=== PATIENT | male | born 1950 | race Caucasian/White ===

== ENCOUNTER → 2017-04-14 09:48 | Outpatient (CLI) | payer MEDICARE, OTHER, SELFPAY ==
[2017-04-14 11:35] LABS: PSA,Total- Diagnostic < 0.01 ng/mL (0.0-4.0)
== END ==
PROVIDERS: Family Provider Family Medicine; PCP Family Medicine; Visit Provider Urology
DX: C61 Malignant neoplasm of prostate (principal)
CPT/HCPCS: 36415; 84153

== ENCOUNTER → 2017-07-12 10:04 | Outpatient (CLI) | payer MEDICARE, OTHER, SELFPAY ==
[2017-07-12 11:21] LABS: PSA,Total- Diagnostic < 0.01 ng/mL (0.0-4.0)
== END ==
PROVIDERS: Family Provider Family Medicine; PCP Family Medicine; Visit Provider Urology
DX: C61 Malignant neoplasm of prostate (principal)
CPT/HCPCS: 36415; 84153

== ENCOUNTER → 2017-08-08 09:21 | Outpatient (CLI) | payer MEDICARE, OTHER, SELFPAY ==
[2017-08-08 10:21] LABS: Hemoglobin A1c 6.2 % (4.2-6.3)
[2017-08-08 10:30] LABS: AST(SGOT) 14 U/L (15-37); Alanine Aminotransfer ALT/SGPT 18 U/L (16-61); Albumin, Serum 3.5 g/dL (3.2-5.0); Alkaline Phosphatase 76 U/L (45-117); Anion Gap 6 (5-15); BUN 16 mg/dL (7-18); BUN/Creat Ratio 14.5 RATIO (10-20); Calcium,Total 8.5 mg/dL (8.5-10.1); Chloride 111 mmol/L (98-107); Cholesterol 156 mg/dL (200); EST Glomerular Filtration Rate 70 mL/min (>60); Est Glom Filt Rate - Afr Amer 85 mL/min (>60); Globulin 3.5 g/dL (2.2-4.2); Glucose 94 mg/dL (74-106); High Density Lipoprotein 42 mg/dL; Potassium 4.3 mmol/L (3.5-5.1); Sodium Level 142 mmol/L (136-145); Triglycerides 86 mg/dL; Very Low Density Lipoprotein 17 mg/dL (5-40)
== END ==
PROVIDERS: Family Provider Family Medicine; PCP Family Medicine; Visit Provider Family Medicine
DX: E78.5 Hyperlipidemia, unspecified (principal); R73.03 Prediabetes
CPT/HCPCS: 36415; 80053; 80061; 83036

== ENCOUNTER → 2018-01-12 10:02 | Outpatient (CLI) | payer MEDICARE, OTHER, SELFPAY ==
[2017-02-16 13:24] VITALS: BMI 31.9
[2018-01-12 13:22] LABS: PSA,Total- Diagnostic < 0.01 ng/mL (0.0-4.0)
--- OUTSIDE RECORDS SUMMARY | 2018-03-09 12:02 | XMS RPT_ITS ---
:1950 Author Organization OHIP Care Team Providers Name Role Phone Estephanie Lockhart Admitting Unavailable Estephanie Lockhart Attending Unavailable Estephanie Lockhart Primary Care Unavailable Estephanie Lockhart Attending Unavailable Estephanie Lockhart Primary Care Unavailable Estephanie Lockhart Admitting Unavailable Estephanie Lockhart Attending Unavailable Estephanie Lockhart Primary Care Unavailable Jem Mccall Admitting Unavailable Jem Mccall Attending Unavailable Estephanie Lockhart Primary Care Unavailable Jem Mccall Attending Unavailable Jem Mccall Referring Unavailable Estephanie Lockhart Primary Care Unavailable Jem Mccall Attending Unavailable Jem Mccall Referring Unavailable Estephanie Lockhart Primary Care Unavailable Jem Mccall Attending Unavailable Jem Mccall Referring Unavailable Estephanie Lockhart Primary Care Unavailable Estephanie Lockhart Attending Unavailable Estephanie Lockhart Referring Unavailable Estephanie Lockhart Primary Care Unavailable Jem Mccall Attending Unavailable Jem Mccall Referring Unavailable Estephanie Lockhart Primary Care Unavailable PROBLEMS PROBLEMS DATE TYPE CONDITION / CODE ATTENDING STATUS SOURCE 07/12/2017 Unknown C61 - Malignant StefanyJem merritt Active [place] [facility] prostate / Hospital C61(ICD-10) Repository 03/03/2017 Unknown Z01.818 - Encounter Jem Mccall Active [facility] for other [facility] preprocedural Hospital examination / Repository Z01.818(ICD-10) 02/19/2017 Unknown 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 Values obtained with different assay methods cannot be used interchangably. When changing PSA assays in the course of monitoring a patient, additional sequential testing should be carried out to confirm baseline values. Performed By: #### L501.9940 #### [facility] [address] [place], [place], [address] HEMOGLOBIN A1C Collected: 08/08/2017 Status: F Source: GAIL 9:26 AM [facility] REPOSITORY TYPE CODE TESTS RESULT OUT OF RANGE REFERENCE UNITS LAB L501.9985 4.2-6.3 % Normal HGB A1C 6.2 Performed By: #### L501.9985 #### [facility] [address] [place], [address] COMPREHENSIVE METABOLIC Collected: 08/08/2017 Status: F Source: GAIL PROFIL 9:26 AM [facility] REPOSITORY TYPE CODE TESTS RESULT OUT OF RANGE REFERENCE UNITS LAB L501.0100 74-106 mg/dL Normal GLU 94 Result Comment: Please note revised GLUCOSE reference range effective 2017. LAB L501.1000 7-18 mg/dL Normal BUN 16 LAB L501.1100 0.70-1.30 mg/dL Normal CREAT,SERUM 1.10 Result Comment: The validity of the calculated GFR AND GFRAA in patients over 70 years has not been determined. Clinical correlation is essential. LAB L501.1110 >60 mL/min Normal EST GFR 70 Result Comment: Non- GFR Calc LAB L501.1115 >60 mL/min Normal EST GFR - AA 85 Result Comment: GFR Calc LAB L501.1300 10-20 RATIO Normal BUN/CRE 14.5 LAB L501.1500 6.4-8.2 g/dL T Normal PROT 7.0 LAB L501.1800 3.2-5.0 g/dL Normal ALB 3.5 LAB L501.1950 2.2-4.2 g/dL Normal GLOB 3.5 LAB L501.2000 0.9-2.4 RATIO Normal A/G 1.0 LAB L501.2200 8.5-10.1 mg/dL CA Normal 8.5 LAB L501.4100 15-37 U/L Low AST 14 LAB L501.4305 45-117 U/L Normal ALK P 76 LAB L501.4405 16-61 U/L Normal ALT 18 LAB L501.4600 0.20-1.00 mg/dL High T BILI 1.60 LAB L501.5300 136-145 mmol/L NA Normal 142 LAB L501.5600 3.5-5.1 mmol/L K Normal 4.3 LAB L501.5900 98-107 mmol/L High CL 111 LAB L501.6100 21.0-32.0 mmol/L Normal CO2 25.0 LAB L501.6200 5-15 Normal GAP 6 Performed By: #### L500.4050, L500.4100 #### [facility] [address] [place], [place], [address] LIPID PROFILE Collected: 08/08/2017 Status: F Source: GAIL 9:26 AM [facility] REPOSITORY TYPE CODE TESTS RESULT OUT OF RANGE REFERENCE UNITS LAB L501.4900 200 mg/dL Normal CHOL 156 Result Comment: <200 mg/dL Desirable 200-240 mg/dL Borderline >240 mg/dL High Risk LAB L501.5000 mg/dL Normal TRIG 86 Result Comment: The drugs N-Acetylcysteine and Metamizole may falsely depress this assay. Serum Triglycerides Reference Interval Normal <150 mg/dL Borderline high 150 - 199 mg/dL High 200 - 499 mg/dL Very High > or = 500 mg/dL LAB L501.6400 mg/dL Normal HDL 42 Result Comment: The drugs N-Acetylcysteine and Metamizole may falsely depress this assay. Reference Range HDL <40 mg/dL Low HDL Cholesterol HDL >or= 60 mg/dL High HDL Cholesterol LAB L501.6500 0-130 mg/dL Normal LDL 97 LAB L501.6600 5-40 mg/dL Normal VLDL 17 Performed By: #### L500.4050, L500.4100 #### [facility] [address] [place], [address] PSA,TOTAL- DIAGNOSTIC Collected: 07/12/2017 Status: F Source: [place] 10:23 AM [facility] REPOSITORY TYPE CODE TESTS RESULT OUT OF RANGE REFERENCE UNITS LAB L501.9940 0.0-4.0 ng/mL PSA, Normal DIAGNOSTIC < 0.01 Result Comment: This test was performed using the TPSA assay method for the [employer] chemistry system. Values obtained with different assay methods cannot be used interchangably. When changing PSA assays in the course of monitoring a patient, additional sequential testing should be carried out to confirm baseline values. Performed By: #### L501.9940 #### [facility] [address] [place], [address] PSA,TOTAL- DIAGNOSTIC Collected: 04/14/2017 Status: F Source: [place] 9:53 AM [facility] RE[facility]ORY TYPE CODE TESTS RESULT OUT OF RANGE REFERENCE UNITS LAB L501.9940 0.0-4.0 ng/mL PSA, Normal DIAGNOSTIC < 0.01 Result Comment: This test was performed using the TPSA assay method for the [employer] chemistry system. Values obtained with different assay methods cannot be used interchangably. When changing PSA assays in the course of monitoring a patient, additional sequential testing should be carried out to confirm baseline values. Performed By: #### L501.9940 #### [facility] [address] [place], [address] CYSTOGRAPHY MIN 3 VIEWS Observed: 03/03/2017 Status: F Source: [place] 8:41 AM [facility] REPOSITORY [facility] Imaging Services [address] [place] [address] Cystography min 3 Views MR#: [id number] Acct: [id number] Name: HUNTER TESFAYE Rep #: [id number] : 1950 M 67 From: Fabio Collins MD PCP: Estephanie Lockhart MD Status: REG CLI Study: Cystography min 3 Views Date of Exam: 03/03/17 Exam# [id number] Ordering Dr: Jem Mccall MD CLINICAL HISTORY: Male, 67 years old. Status post prostatectomy. PROCEDURE: Cystogram. FLUOROSCOPY TIME (if supplied): (39 seconds) minutes/seconds 200 mL of contrast installed into the bladder in a retrograde fashion through the indwelling catheter. The radiologist installed the contrast into the bladder. TECHNIQUE: (All elements of maximal sterile barrier technique followed, including US elements as applicable) 20 mL of contrast was injected through the catheter. 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 There is no evidence of extravasation. RAD/Cystography min 3 Views IMPRESSION: There is trabeculation of the urinary bladder. No evidence of extravasation. Electronically Signed: Fabio Collins MD at 10:07 EST Tel [phone], Service support , CC: Estephanie Lockhart MD; Jem Mccall MD Topographical Field Assistant: Signed DISCHARGE SUMMARY Observed: 02/23/2017 Status: F Source: [place] 11:57 AM [facility] REPOSITORY [facility] Medical Records Department [address] [place] [address] Discharge Summary 02/23/17 1155 MR#: [id number] Acct: [id number] Name: HUNTER TESFAYE Rep #: [id number] : 1950 67 From: Jem Mccall MD PCP: Estephanie Lockhart MD Status: DIS IN Y Location[place] [facility] [id number] Discharge Date and Diagnosis Date of Admission: 02/16/17 Date of Discharge: 02/19/17 - Primary Discharge Diagnosis Prostate cancer Hospital Course and Treatment Operations: - - Radical prostatectomy Procedures: None Summary of Care Provided: The patient is a 67 year old male with a history of prostate cancer he underwent a laparoscopic robotic assisted radical prostatectomy. Postoperative course was remarkable for urine leak he did have a drain the first 24 hours had very minimal drainage from the drain but then it opened up and he had a significant amount of drainage from the GLYNN drain this is sent for creatinine which came back high confirming that a small urine leak I reassured the patient is this should heal itself without any intervention or problems with a healthy go home with the drain so he was discharged home in good condition on postoperative day #3 the GLYNN drain in place and was instructions on how to drain it and he will call the office once the drainage slows down to the GLYNN drain removed hopefully within the next week and then will remove the catheter in about 2 weeks. Patient went home on a regular diet tolerating regular food ambulating and pain was under control abdomen was soft and benign he is passing gas and also had bowel movements. Discharge Diet: Light diet - advance as tolerated Discharge Activity: May Not Drive Return to work on:: 03/31/17 May shower in (days): 1 Call your doctor if your incision/area has: Continuous Slow Oozing, Sudden Increased Bleeding, Increased Pain/ Swelling, Increased Redness, Foul Smelling Discharge, Swelling at the incision site Call your doctor if you observe: Fever of 101 or Higher, Inability to urinate, Inability to have a bowel movement, Shortness of breath, Chest pain, Uncontrolled pain Suture Line Care: Avoid Pulling/Pushing, Avoid Pinching/Bending Catheter: Vera to leg bag, Vera to large bag Drain: [place] Home Medications: Medications to take at Discharge Aspirin E.C. [Ecotrin] 81 mg PO DAILY@0800 02/01/17 Fluticasone 0.05% [Flonase Nasal [place]] 1 spray NASAL DAILY PRN 02/01/17 Ciprofloxacin [Cipro] 500 mg PO DAILY #20 tab 02/17/17 Docusate Sodium [Colace] 100 mg PO BID #20 cap 02/17/17 Hydrocodone/Acetaminophen [[place]ov[place] 5-325 Tablet] 1 ea PO Q4H PRN PRN #14 tab 02/17/17 Following Prescrptions Were Given to Patient: Hydrocodone/Acetaminophen [[place] 5-325 Tablet] 1 ea PO Q4H PRN PRN #14 tab PRN Reason: Pain Ciprofloxacin [Cipro] 500 mg PO DAILY #20 tab Docusate Sodium [Colace] 100 mg PO BID #20 cap Other Amb Orders: Cystography min 3 Views [RAD] Time Frame: 2 Weeks, Facility: [facility], Location: RAD Future Appts Primary Care Physician: Estephanie Lockhart MD [Primary Care Provider] - Please Follow Up With: Jem Mccall MD When: Appt Mar 03 at 11am, Do cystogram at 10am in radiology. Meaningful Use Info Meaningful Use Diagnoses (Choose all that apply): None applicable 02/23/17 1157 <Electronically signed by Jem Mccall MD> Date Jem Mccall MD Cosigner Signature (if applicable): Date CC: Estephanie Lockhart MD; Jem Mccall MD Signed CREATININE, URINE Collected: 02/18/2017 Status: F Source: [place] (RANDOM) 11:45 AM [facility] REPOSITORY Order Comment: Comments: Fluid from GLYNN drain TYPE CODE TESTS RESULT OUT OF RANGE REFERENCE UNITS LAB L501.1200 NO RANGE EST. mg/dL Normal UR CREAT 40.70 Performed By: #### L501.1200 #### [facility] [address] [place], [address] DISCHARGE INSTRUCTION Observed: 02/17/2017 Status: F Source: [place] 7:46 AM [facility] REPOSITORY [facility] Medical Records Department [address] [place] [address] Instructions for Home/Discharge Instructions 02/17/17 0739 MR#: [id number] Acct: [id number] Name: HUNTER TESFAYE Rep #: [id number] : 1950 67 From: Jem Mccall MD PCP: Estephanie Lockhart MD Status: ADM IN Discharge Diet: Light diet - advance as tolerated Discharge Activity: May Not Drive Return to work on:: 03/31/17 May shower in (days): 1 Lifting Restrictions: no lifting > 10 lbs Call your doctor if your incision/area has: Continuous Slow Oozing, Sudden Increased Bleeding, Increased Pain/ Swelling, Increased Redness, Foul Smelling Discharge, Swelling at the incision site Call your doctor if you observe: Fever of 101 or Higher, Inability to urinate, Inability to have a bowel movement, Shortness of breath, Chest pain, Uncontrolled pain Suture Line Care: Avoid Pulling/Pushing, Avoid Pinching/Bending Catheter: Vera to leg bag, Vera to large bag Drain: [place] Allergies/Adverse Reactions: Allergies No Known Allergies Allergy (Verified 02/01/17 13:47) Medications to take at Discharge Aspirin E.C. [Ecotrin] 81 mg PO DAILY@0800 02/01/17 Fluticasone 0.05% [Flonase Nasal [place]] 1 spray NASAL DAILY PRN 02/01/17 Ciprofloxacin [Cipro] 500 mg PO DAILY #20 tab 02/17/17 Docusate Sodium [Colace] 100 mg PO BID #20 cap 02/17/17 Hydrocodone/Acetaminophen [Bovina 5-325 Tablet] 1 ea PO Q4H PRN PRN #14 tab 02/17/17 The following prescriptions were given: Hydrocodone/Acetaminophen [Bovina 5-325 Tablet] 1 ea PO Q4H PRN PRN #14 tab PRN Reason: Pain Ciprofloxacin [Cipro] 500 mg PO DAILY #20 tab Docusate Sodium [Colace] 100 mg PO BID #20 cap Orders to be completed after discharge: Cystography min 3 Views [RAD] Time Frame: 2 Weeks, Facility: [facility], Location: [facility] Future Appts Primary Care Physician: Estephanie Lockhart MD [Primary Care Provider] - Please Follow Up With: Jem Mccall MD When: Appt Mar 03 at 11am, Do cystogram at 10am in radiology. Proposed Discharge Date: 02/18/17 02/17/17 0746 <Electronically signed by Jem Mccall MD> Date Jem Mccall MD CC: Estephanie Lockhart MD CBC-COMPLETE BLOOD CNT Collected: 02/17/2017 Status: F Source: [place] NO DIFF 6:20 AM [facility] REPOS[facility]ORY TYPE CODE TESTS RESULT OUT OF RANGE REFERENCE UNITS LAB L100.1000 4.4-11.0 K/mm3 High WBC 12.5 LAB L100.1200 4.6-6.2 M/mm3 Low RBC 3.71 LAB L100.1300 13.0-16.5 g/dl Low HGB 11.1 LAB L100.1400 40-54 % Low HCT 33.2 LAB L100.1500 80-94 fL Normal MCV 89.5 LAB L100.1600 27.0-32.0 pg Normal MCH 29.9 LAB L100.1700 32-36 g/gl Normal MCHC 33.4 LAB L100.1810 11.6-14.6 % Normal RDW CV 13.3 LAB L100.1820 35.1-43.9 fl Normal RDW SD 43.4 LAB L100.1900 150-450 K/mm3 Normal PLT 178 LAB L100.2000 6.2-12.0 fl Normal MPV 9.1 Performed By: #### L100.0500 #### [facility] [address] [place], [address] BASIC METABOLIC Collected: 02/17/2017 Status: F Source: [place] PROFILE (BMP) 6:20 AM [facility] REPOSITORY TYPE CODE TESTS RESULT OUT OF RANGE REFERENCE UNITS LAB L501.0100 70-110 mg/dL Normal GLU 109 LAB L501.1000 7-18 mg/dL Normal BUN 13 LAB L501.1100 0.70-1.30 mg/dL Normal 1.12 CREAT,SERUM Result Comment: The validity of the calculated GFR AND GFRAA in patients over 70 years has not been determined. Clinical correlation is essential. LAB L501.1110 >60 mL/min Normal EST GFR 69 Result Comment: Non- GFR Calc LAB L501.1115 >60 mL/min Normal EST GFR - AA 84 Result Comment: GFR Calc LAB L501.1255 ml/min Normal Estimated CRCL 60.22 LAB L501.1300 10-20 RATIO Normal BUN/CRE 11.6 LAB L501.2200 8.5-10 mg/dL Low .1 CA 7.7 LAB L501.5300 136-14 mmol/L Normal 5 NA 140 LAB L501.5600 3.5-5. mmol/L Normal 1 K 4.1 LAB L501.5900 98-107 mmol/L High CL 109 LAB L501.6100 21.0-3 mmol/L Normal 2.0 CO2 25.0 LAB L501.6200 5-15 Normal GAP 6 Performed By: #### L500.2500 #### [facility] [address] [place], [place], [id number] CBC-COMPLETE BLOOD CNT Collected: 02/16/2017 Status: F Source: [place] NO DIFF 12:33 PM [facility] REPOSITORY Order Comment: Comments: To be done in PACU TYPE CODE TESTS RESULT OUT OF RANGE REFERENCE UNITS LAB L100.1000 4.4-11.0 K/mm3 High WBC 13.8 LAB L100.1200 4.6-6.2 M/mm3 Low RBC 4.50 LAB L100.1300 13.0-16.5 g/dl Normal HGB 13.5 LAB L100.1400 40-54 % Low HCT 39.3 LAB L100.1500 80-94 fL Normal MCV 87.3 LAB L100.1600 27.0-32.0 pg Normal MCH 30.0 LAB L100.1700 32-36 g/gl Normal MCHC 34.4 LAB L100.1810 11.6-14.6 % Normal RDW CV 13.0 LAB L100.1820 35.1-43.9 fl Normal RDW SD 41.9 LAB L100.1900 150-450 K/mm3 Normal PLT 167 LAB L100.2000 6.2-12.0 fl Normal MPV 9.1 Performed By: #### L100.0500 #### [facility] [address] [place], [place], [id number] BASIC METABOLIC Collected: 02/16/2017 Status: F Source: [place] PROFILE (BMP) 12:33 PM [facility] REPOSITORY Order Comment: Comments: To be done in PACU TYPE CODE TESTS RESULT OUT OF RANGE REFERENCE UNITS LAB L501.0100 70-110 mg/dL High GLU 152 Result Comment: Fasting Glucose result greater than or equal to 126 mg/dL suggests DIABETES MELLITUS per A.D.A. criteria. LAB L501.1000 7-18 mg/dL Normal BUN 12 LAB L501.1100 0.70-1.30 mg/dL Normal CREAT,SERUM 1.09 Result Comment: The validity of the calculated GFR AND GFRAA in patients over 70 years has not been determined. Clinical correlation is essential. LAB L501.1110 >60 mL/min Normal EST GFR 71 Result Comment: Non- GFR Calc LAB L501.1115 >60 mL/min Normal EST GFR - AA 86 Result Comment: GFR Calc LAB L501.1255 ml/min Normal Estimated CRCL 61.88 LAB L501.1300 10-20 RATIO Normal BUN/CRE 11.0 LAB L501.2200 8.5-10 mg/dL Low .1 CA 7.9 LAB L501.5300 136-14 mmol/L Normal 5 NA 141 LAB L501.5600 3.5-5. mmol/L Normal 1 K 3.6 LAB L501.5900 98-107 mmol/L High CL 108 LAB L501.6100 21.0-3 mmol/L Normal 2.0 CO2 23.0 LAB L501.6200 5-15 Normal GAP 10 Performed By: #### L500.2500 #### [facility] [address] [place], [address] OPERATIVE REPORT Observed: 02/16/2017 Status: F Source: [place] 12:01 PM [facility] REPOSITORY [facility] Medical Records Department [address] [place] [address] Operative Report 02/16/17 1149 MR#: [id number] Acct: [id number] Name: HUNTER TESFAYE Rep #: [id number] : 1950 67 From: Jem Mccall MD PCP: Estephanie Lockhart MD Status: ADM IN Y Location: [place] [address] Problem List (1) Prostate cancer Status: Acute (2) Benign prostatic hyperplasia (BPH) with urinary urgency Status: Acute (3) Frequent urination Status: Acute Report of Operation Date of Procedure: 02/16/17 Pre-Operative Diagnosis: Prostate cancer, BPH with obstruction urgency and frequent urination Post-Operative Diagnosis: Same Surgery/Procedure Performed:: Laparoscopic robotic assisted radical prostatectomy, suture suspension of the urethra to prevent stress incontinence. Bilateral pelvic lymph node dissection. EMG monitoring of the pelvic lymph nodes and the urethral sphincter Description of Surgical Findings:: 67-year-old male was taken back to the operating room after smooth induction of general anesthesia he was placed in dorsal lithotomy position the abdomen was shaved prepped and draped in usual sterile fashion. I made an incision above the umbilicus. Used a Veress needle advanced the Veress needle through the skin fascial layers and into the peritoneal cavity and insufflated the peritoneal cavity with CO2 gas. Once the peritoneal cavity was insufflated then I placed a trocar through the incision this with a camera trocar I used then use a camera to come into the peritoneal cavity inspected the peritoneal cavity stent with normal adhesions between the sigmoid colon and the lateral wall I then placed my right arm left arm and my fourth arm I placed my variceal port and I also placed my suction port. First went into the abdomen and dissected the sigmoid colon off the lateral wall this allowed it to be retracted and then went down into the pelvis identified the second fold of the pelvis and side was incised this fold and then immediately came upon the seminal vesicle with vas deferens dissected out the right seminal vesicle and right vas deferens all the way to the prostate and then went to the left side and dissected out the left seminal vesicle and left vas deferens below the prostate I then identified the nonbilious fascia did not inside the IV fascia was but I teased the prostate often obvious fascia posteriorly working all the way up to the apex posteriorly of the prostate. I then pulled out of the pelvis the fourth arm was released off the colon and then proceeded with creating the space of Retzius and dropping the bladder use the fourth arm to retract the bladder fold down incised the peritoneum and entered the space of Retzius on the right side that the same thing on the left side and into the space of Retzius and dissected out the space of Retzius completely and then transected through the umbilical ligament and medial umbilical ligament to dropped the bladder down the bladder was then placed on traction with the fourth arm and then I went to the prostate I cleaned the prostate off completely of all the fat above the prostate I cleaned the pelvic sidewalls I then identified the levator fascia, off the pelvic sidewall incised the levator fascia and then teased the levator muscles off the prostate on the right side all the way up to the apex and then went to the left side and identified the levator fascia and the left side and then teased the pelvic muscles off the prostate on the left side and then worked towards the apex of the prostate with the dorsal vein complex transected through the puboprostatic ligaments and then identified the dorsal vein complex. Stitch was then placed in the dorsal vein complex circumferentially using a [id number] technique once a stitch was done to secure the dorsal vein that I pulled back to the junction between the prostate and the bladder neck I first then incised the endopelvic fascia over the overlying the prostate on the right side and the left side to assist with the identified creation of the neurovascular bundles and releasing of the neurovascular bundles. The catheter was moved back and forth identify the junction between the bladder and the prostate and then once this was identified and I dissected through the junction between the bladder and prostate came down on the catheter the balloon was deflated and the catheter was pulled up on traction patient had a prior TURP so he can have a wide open bladder neck took some time to identify the proper landmarks of the bladder neck since and it was prior operative field. I then also identified the left and right ureteral orifices as well. We then went posterior and dissected the posterior aspect of the bladder from the prostate until I reached the seminal vesicles and vas deferens had already been dissected out. We then placed the EMG monitor leads into the abdomen through the care provided through the supra supraumbilical stab incision I put the first monitor in the right side in the levator muscles and the second lead in the left levator muscles we then used the bipolar to stimulate the EMG stimulation and identified the track of the neurovascular bundle and the pudendal pudendal nerve branches headed on the right side of the pelvis this was identified and marked so I knew were to do the dissection. I then went to the left side again this using the bipolar and the EMG monitor identified the action potential on the nerve bundles run in the left side of the prostate towards the apex once this was accomplished in identifying the identifying both these bundles then I transected through the pedicle of the prostate on the right side until identified the prostate capsule and then I carefully teased the neurovascular bundle posterior of the prostate all the way to the apex until I got to the sphincter. I then went to the left side and a same thing as I transected through the pedicle of the prostate the left side and then transected through the pedicle and then identified the neurovascular bundle on the left side and teased the neurovascular bundles off the prostate and the left side all the way up to the apex was then awakened came up to the apex and transected through the dorsal vein complex and then dissected circumferentially all the way around the urethra in order to allow for a nice urethral stump. I then had to place an extra stitch in the dorsal vein complex to control bleeding. Once this was accomplished and there was no more bleeding from the dorsal vein complex I then transected the urethra as close as possible to the prostate and then remove the prostate put in Endo Catch bag at this point we can we proceeded with the suspension of the urethra to help with incontinence suture suspension was done in the bladder neck and the urethra for starting at the 6 o'clock position then running all the way up on the right side to the 12 o'clock position then starting on the 6 o'clock position posterior then went all the way on the left side to the 12 o'clock position once this was accomplished and we flushed the catheter there was a small leak at the 11 o'clock position in the 1 o'clock position extra stitches were placed to slow down the leg significantly but is only a small leak after second flush test so at this point decided to leave a drain and so we did leave a drain in next to the completed anastomosis and suspension of the urethra and a catheter was put into the bladder with 10 cc in the balloon and it was [place] tip catheter the bladder was flushed clear once the anastomosis was completed then I pulled back to the pelvic lymph nodes identified the right iliac vein and right iliac artery pelvic sidewall the lymph noted [place] and also identified the obturator nerve completed the lymph node dissection on the right side and after this was completed I used clips and electrocautery to control any bleeding or lymph hepatic channels. Specimen was then handed off in the right side the lymph nodes looked grossly negative. On the left side I went over and dissected the lymph nodes off the left pelvic sidewall again identified my landmarks the left iliac vein and artery the obturator nerve was identified and the lateral pelvic sidewall and the noted cochlea and the left side dissected out the lymph nodes in this and the timber treating tank operator space and then once this was completed then handed off the left pelvic lymph nodes as a specimen again this appeared grossly negative. At the end of the procedure with the prostate was then extracted through the umbilical port we closed the 1012 variceal port with a Sukhwinder Diaz stitch we placed a drain through the fourth arm port and secured this to the skin with stitches patient's anesthetic was reversed and he was taken back to the PACU in good condition I was present during the entire case and I had a RETAIL LEASING AGENT for an machine assistant. Type of Anesthesia:: General Drains: vera and drain. Estimated Blood Loss (mL): 150cc - Admit VTE Documentation VTE Present on Admission: No VTE Mechan Device Prophylaxis: SCD's VTE Pharm Prophylaxis ordered?: No Reason prophylaxis not ordered:: Treatment Not Indicated 02/16/17 1201 <Electronically signed by Jem Mccall MD> Date Jem Mccall MD CC: Estephanie Lockhart MD; Jem Mccall MD Signed BASIC METABOLIC Collected: 02/16/2017 Status: F Source: [place] PROFILE (BMP) 6:20 AM [facility] REPOSITORY TYPE CODE TESTS RESULT OUT OF RANGE REFERENCE UNITS LAB L501.0100 70-110 mg/dL Normal GLU 96 LAB L501.1000 7-18 mg/dL Normal BUN 11 LAB L501.1100 0.70-1.30 mg/dL Normal 1.02 CREAT,SERUM Result Comment: The validity of the calculated GFR AND GFRAA in patients over 70 years has not been determined. Clinical correlation is essential. LAB L501.1110 >60 mL/min Normal EST GFR 77 Result Comment: Non- GFR Calc LAB L501.1115 >60 mL/min Normal EST GFR - AA 93 Result Comment: GFR Calc LAB L501.1255 ml/min Normal Estimated CRCL 66.13 LAB L501.1300 10-20 RATIO Normal BUN/CRE 10.8 LAB L501.2200 8.5-10 mg/dL Normal .1 CA 8.6 LAB L501.5300 136-14 mmol/L Normal 5 NA 141 LAB L501.5600 3.5-5. mmol/L Normal 1 K 3.7 LAB L501.5900 98-107 mmol/L Normal CL 106 LAB L501.6100 21.0-3 mmol/L Normal 2.0 CO2 26.0 LAB L501.6200 5-15 Normal GAP 9 Performed By: #### L500.2500 #### [facility] [address] [facility] [place], [address] TYPE AND SCREEN Collected: 02/16/2017 Status: F Source: GAIL 6:20 AM [facility] REPOSITORY Order Comment: Reason for Type AND Screen/Red Cells: SURGERY TYPE CODE TESTS RESULT OUT OF RANGE REFERENCE UNITS LAB B10.0800 A Normal BLOOD TYPE GEL POSITIVE LAB B100.4000 Normal Antibody NEGATIVE Screen Performed By: #### B101.7450 #### [facility] [address] [facility] [place], [address] PROSTATE RADICAL Observed: 02/16/2017 Status: F Source: [place] RESECTION 12:00 AM [facility] REPOSITORY Patient: HUNTER TESFAYE : 1950 (67/M) Acct Num: [id number] Phys: Jem Mccall MD Miguel Unit Num: [id number] Loc: MS2 [id number] Specimen: [id number] Received: 02/16/17 - 1214 Spec Type: PROSTATE TISSUES TISSUES: A. Prostate, NOS B. Lymph node of pelvis, NOS C. Lymph node of pelvis, NOS COMMENT The tumor in the right prostatic lobe is present in slides #1, 6, 7, 10, 12 and 13 and measures 1.5 x 0.5 cm in greatest dimension (measured microscopically) and the tumor in the left lobe is present in slides #1, 6, 8, 9, 11, 14, 18 and 19 and measures 1.7 x 1.4 cm in greatest dimension (measured microscopically). Please make reference to previous specimen ([id number]) prostate chips, TUR with diagnosis of focal prostatic adenocarcinoma and (B81-5020) right prostate apex, mid and base and left prostate apex and mid with diagnosis of prostatic adenocarcinoma and left prostate base with diagnosis of focal high-grade prostatic intraepithelial neoplasia (HGPIN). Case has been reviewed in consultation with Dr. Barnes who concurs with the above diagnosis. IDC:AM GROSS DESCRIPTION A - Received in fixative is one container labeled with the patient's name and designated prostate. The specimen consists of a prostate gland with attached right and left seminal vesicles and vas deferens. The prostate gland weights 32 gm and measures 4.6 cm craniocaudally, 3.5 cm anterior posteriorly and 4.4 cm transversely. The external surface of the gland is smooth and glistening. No rubbery nodularities or masses are grossly identified. The specimen is differentially inked as follows: anterior red, right half blue, left half green and entire posterior surface black. Serial sections reveal homogenous light wilson cut surfaces. No mass lesions are identified. Ict Project Manager sections are submitted in 20 cassettes as follows: 1 distal urethral shave ( apex shave), 2 proximal urethral shave (bladder shave), 3 seminal vesicles, 4 AND 5 most basal section, 6-8 apex, 9-14 mid portion of gland, 15-20 base of gland. / AM: 02/17/17 B - Received in fixative is one container labeled with the patient's name and designated right pelvic lymph node. The specimen consists of a piece of yellow adipose tissue measuring 3 x 2.5 x 0.5 cm. One lymph node is identified. The entire specimen is submitted in two cassettes. Cassette 1 contains one grossly identified lymph node. The specimen will be submitted after overnight fixation. / SJ: 02/16/17 C - Received in fixative is one container labeled with the patient's name and designated left pelvic lymph nodes. The specimen consists of two ovoid nodules consisting of lymph nodes are identified measuring 2 and 2.5 cm in greatest dimension. The entire specimen is submitted in two cassettes as follows: 1 two lymph nodes, 2 rest of the specimen. The specimen will be submitted after overnight fixation. / SJ: 02/16/17 TC:0 CPT: 78075, 38676 x2 HEADER OPERATION: Laparoscopic robotic prostatectomy PRE-OP DIAGNOSIS: Prostate cancer TISSUE SUBMITTED: A Prostate, B Right pelvic lymph node, C Left pelvic lymph node MICROSCOPIC DESCRIPTION Slides are reviewed. MICROSCOPIC DIAGNOSIS A. Prostate, radical prostatectomy: Prostatic adenocarcinoma. See cancer summary below. B. Right pelvic lymph node: Five out of five lymph nodes negative for metastatic carcinoma. C. Left pelvic lymph node: Four out of four lymph nodes negative for metastatic carcinoma. PROSTATE CANCER (RADICAL) SUMMARY: (Including specimen A, B AND C) Procedure radical prostatectomy Prostate size - 4.6 cm craniocaudally, 3.5 cm anterior posteriorly and 4.4 cm transversely Prostate weight 32 gm Lymph node sampling pelvic lymph node dissection Histologic type adenocarcinoma (acinar) Histologic grade (Berkley Pattern): Primary pattern - 4 Secondary pattern - 3 Tertiary pattern not identified Total Berkley score - 7 Tumor Quantitation: Proportion (%) of prostate involved by tumor ~30% Tumor size See comment. Extraprostatic extension present, focal Seminal vesicle invasion not identified Margins margin focally involved by invasive carcinoma apical margin is positive for tumor. The anterior margin, posterior margin, right lateral and left lateral margins are <0.1 cm away from the tumor. Treatment effect on carcinoma no known presurgical therapy. Lymph-Vascular invasion not identified Perineural invasion - present Regional lymph nodes: Number examined - 9 Number involved - 0 Distant metastasis not applicable Additional pathologic findings benign prostatic hyperplasia with focal calcification. Focal high-grade prostatic intraepithelial neoplasia (HGPIN). Ancillary studies - PATHOLOGIC STAGE: pT3a pN0 Mx The above summary is in compliance with [employer] (CAP) Cancer Protocols Checklist and [place] Joint Committee on Cancer (AJCC), Staging Manual, 8th Ed. SJ:diogenes 02/18/17 Signed Levi Lester 02/18/17 <signature on file> Performed By: #### PPROST #### [facility] [address] [place] [address]. [place], [address] 12 LEAD ELECTROCARDIOGRAM Observed: 02/04/2017 Status: F Source: GAIL 7:30 AM [facility] REPOSITORY [facility] [address] [place] [address] EKG - [facility] 02/01/17 1425 MR#: [id number] Acct: [id number] Name: HUNTER TESFAYE Rep #: [id number] : 1950 66 From: Jorje Celestin MD Attending Dr: Jem Mccall MD Status: PRE IN Ordering Dr: Rene Rucker MD Date: 02/01/17 Location: [facility] Sex: M C Admitted: Test Reason : Blood Pressure : / mmHG Vent. Rate : 056 BPM Atrial Rate : 056 BPM P-R Int : 184 ms QRS Dur : 112 ms QT Int : 434 ms P-R-T Axes : 031 -04 009 degrees QTc Int : 418 ms Sinus bradycardia Minimal voltage criteria for LVH, may be normal variant Borderline ECG Confirmed by JORJE CELESTIN ([id number]), video editor SEBASTIAN RITTER ([id number]) on 02/04/2017 7:29:49 AM Referred By: LORETTA Confirmed By:JORJE CELESTIN 02/04/17 0729 Date Jorje Celestin MD CC: Estephanie Lockhart MD Date Dictated: 02/01/17 142 Date Transcribed: 02/01/171424 Topographical Field Assistant: Signed CBC-COMPLETE BLOOD CNT Collected: 02/01/2017 Status: F Source: [place] NO DIFF 2:45 PM [facility] REPOSITORY TYPE CODE TESTS RESULT OUT OF RANGE REFERENCE UNITS LAB L100.1000 4.4-11.0 K/mm3 Normal WBC 5.6 LAB L100.1200 4.6-6.2 M/mm3 Normal RBC 5.20 LAB L100.1300 13.0-16.5 g/dl Normal HGB 15.8 LAB L100.1400 40-54 % Normal HCT 45.4 LAB L100.1500 80-94 fL Normal MCV 87.3 LAB L100.1600 27.0-32.0 pg Normal MCH 30.4 LAB L100.1700 32-36 g/gl Normal MCHC 34.8 LAB L100.1810 11.6-14.6 % Normal RDW CV 13.1 LAB L100.1820 35.1-43.9 fl Normal RDW SD 41.8 LAB L100.1900 150-450 K/mm3 Normal PLT 194 LAB L100.2000 6.2-12.0 fl Normal MPV 9.3 Performed By: #### L100.0500 #### [facility] [address] [place], [address] ALLERGIES ALLERGIES DATE TYPE / CODE NAME / CODE REACTION SEVERITY SOURCE 02/01/2017 Drug No Known Unknown [place] Allergy/416 Allergies/E516996 [facility] 306996(SNOM 388(RXNORM) [facility] ED CT) Repository Drug/667849 No Known [facility] 003([facility]) Allergies System Repository ENCOUNTERS ENCOUNTERS ADMIT/DISCHARGE ACCOUNT NUMBER ADMITTING ENCOUNTER LOCATION SOURCE CLASS 01/12/2018 [id number] [facility] ding:LAB Repository 11/22/2017/11/23/19 [id number] Estephanie Lockhart [address] ding:[place] Repository nt Medic 08/12/2017 [id number] [facility] ding:[place] Repository nt Medic 08/12/2017/08/13/19 [id number] Estephanie Lockhart [address] ding:[place] Repository nt MedicRoom: Room 3 08/08/2017 [id number] [facility] ding:LAB Repository 07/12/2017 [id number] [facility] ding:LAB Repository 04/14/2017 [id number] [facility] ding:LAB Repository 03/03/2017 [id number] [facility] ding:RAD Repository 02/16/2017/02/19/19 [id number] Jem Mccall Inpatient [address] ding:[id number] Repository : OP079Bws: 1 PAYERS PAYERS ENCOUNTER GUARANTOR PAYER SUBSCRIBER SOURCE 01/12/2018 HUNTER Blas [id number] Primary HUNTER Blas REPPDOB: [facility] Insurance:[place]IC[id number]: Repository [address]Gan: [phone] [id number] [phone] () Date:2018-01-12 01/12/2018 Secondary HUNTER Blas REPPDOB: [place] Insurance:MUTUAL OF [id number] [facility]ly [facility] Number: [facility] [id number] Repository Date:1067-12-30DNACOZ[place]ABUCO [place], [place] [address]FX: 01/12/2018 Tertiary NOT GIVENUNK [place] Insurance:SELF PAY [facility] Number: Effective Repository Date:2018-01-12 11/22/2017 HUNTER Blas REPPDOB: Primary HUNTER Blas REPPDOB: [facility] Insurance:1500 [id number] [facility] [place] PRIMARY[place] Number: [facility] INDRA GARCIA Effective INDRA GARCIA [id number]: Date:2017-11-11 - [id number]: [id number] () Name:CD:[id number] O ()Tel: (000) [address], 000[address] ([place]) [place] [address]XK: 11/22/2017 Secondary HUNTER Blas REPPDOB: [facility] Insurance:[address] [id number] [place] [address] Number: Effective [place] Repository Date:2017-11-11 - [place] [id number] [id number]: Name:CD:[id number] [facility] ()Tel: (000) [place], [place] 000-[address] ([place]) [address]VA: 08/12/2017 HUNTER Blas REPPDOB: Primary HUNTER Blas REPPDOB: [facility] Insurance:1500 [id number] [facility] [place] PRIMARYPolicy Number: [facility] INDRA GARCIA Effective [place] [id number]: Date:2017-08-12 - [id number]: [id number] (HP) Name:CD:[id number] O (HP)Tel: (000) [address], 000-0000 ([place]) [place] [address]DB: 08/12/2017 Secondary HUNTER Blas REPPDOB: [facility] Insurance:[address] [id number] [facility] Number: Effective [facility] Repository Date:2017-08-12 - [place] [id number] [id number]: Name:CD:[id number] [place] (HP)Tel: (000) [place], [place] 000-[address] ([place]) [address]WX: 08/12/2017 HUNTER Blas REPPDOB: Primary HUNTER Blas REPPDOB: [facility] Insurance:[facility] [id number] [facility] [place] [facility] Number: [facility] [place] [id number]: Date:2017-01-26 - [id number]: [id number] (HP) Name:CD:[id number] O (HP)Tel: (000) [address] [address]XBT[address], 000-0000 ([place]) [place] [address]ZN: 08/12/2017 Secondary HUNTER Blas REPPDOB: [facility] Insurance:[address] [id number] [facility] Number: Effective [facility] Repository Date:2017-01-26 - [place] [id number] [id number]: Name:CD:[id number] [place] (HP)Tel: (000) [place], [place] 000[address] ([place]) [address]NZ: 08/08/2017 HUNTER Blas [id number] Primary HUNTER Blas REPPDOB: [facility] Insurance:MEDICARE [id number] [place] [address]Adq: (330) Number: Repository [phone] (HP) [id number] Date:2017-08-08 08/08/2017 Secondary HUNTER Blas REPPDOB: [place] Insurance:MUTUAL OF [id number] Number: Hospital [id number] Repository Date:6950-22-69KXNHZL OF [place], [place] [address]YB: 08/08/2017 Tertiary NOT GIVENUNK [place] Insurance:SELF PAY [facility] Number: Effective Repository Date:2017-08-08 07/12/2017 HUNTER Blas [id number] Primary HUNTER Blas REPPDOB: [place] Insurance:MEDICARE [id number][facility] [address]Mhw: Number: Repository [phone] [id number] (HP) Date:2017-07-12 07/12/2017 Secondary HUNTER Blas REPPDOB: [place] Insurance:MUTUAL OF [id number] [place] [address] Number: Hospital [id number] Repository Date:9798-12-78YKFQFB OF [place], [place] [address]BO: 07/12/2017 Tertiary NOT GIVENUNK [place] Insurance:SELF PAY [facility] Number: Effective Repository Date:2017-07-12 04/14/2017 HUNTER Blas [id number] Primary HUNTER Blas REPPDOB: [place] [facility] Insurance:MEDICARE [id number]-Hyde Memorial Hospital [address]Onn: Number: Repository [phone] [id number] (HP) Date:2017-04-14 04/14/2017 Secondary HUNTER Blas REPPDOB: [place] Insurance:MUTUAL OF [id number] [place] [address] Number: [facility] [id number] Repository Date:3916-00-70GUGMKL [place], [place] [address]QN: 04/14/2017 Tertiary NOT GIVENUNK [place] Insurance:SELF PAY [facility] Number: Effective Repository Date:2017-04-14 03/03/2017 HUNTER Blas [id number] Primary HUNTER Blas REPPDOB: [place] [facility] Insurance:MEDICARE [id number]-Hyde Memorial Hospital [address]Kbe: Number: Repository [phone] [id number] (HP) Date:2017-02-17 03/03/2017 Secondary HUNTER Blas REPPDOB: [place] Insurance:MUTUAL OF [id number] [facility] Children's Hospital Number: Hospital [id number] Repository Date:5937-18-58GQKPFN OF [place], [place] [address]PO: 03/03/2017 Tertiary NOT GIVENUNK [place] Insurance:SELF PAY [facility] Number: Effective Repository Date:2017-02-17 02/16/2017 HUNTER Blas [id number] Primary HUNTER Blas REPPDOB: [place] [facility] Insurance:MEDICARE [id number]-Hyde Memorial Hospital [address]Sex: Number: Repository [phone] [id number] (HP) Date:2017-01-24 02/16/2017 Secondary HUNTER Blas REPPDOB: [place] Insurance:MUTUAL OF [id number] Stanley Children's Hospital Number: Hospital [id number] Repository Date:0675-20-97EOCONK [place], [place] [address]NM: 02/16/2017 Tertiary NOT GIVENUNK [place] Insurance:SELF PAY [facility] Number: Effective Repository Date:2017-01-24
== END ==
PROVIDERS: Family Provider Family Medicine; PCP Family Medicine; Referring Provider Urology; Visit Provider Urology
DX: C61 Malignant neoplasm of prostate (principal)
CPT/HCPCS: 36415; 84153

== ENCOUNTER → 2018-02-23 09:27 | Outpatient (CLI) | payer MEDICARE, OTHER, SELFPAY ==
[2018-02-23 10:44] LABS: Bilirubin, Direct 0.36 mg/dL (0.00-0.30)
== END ==
PROVIDERS: Family Provider Family Medicine; PCP Family Medicine; Referring Provider Family Medicine; Visit Provider Family Medicine
DX: E80.6 Other disorders of bilirubin metabolism (principal)
CPT/HCPCS: 36415; 82247; 82248

== ENCOUNTER → 2018-07-11 09:57 | Outpatient (CLI) | payer MEDICARE, OTHER, SELFPAY ==
[2017-02-16 13:24] VITALS: BMI 31.9
[2018-07-11 16:54] LABS: PSA,Total- Diagnostic < 0.01 ng/mL (0.0-4.0)
== END ==
PROVIDERS: Family Provider Family Medicine; PCP Family Medicine; Referring Provider Urology; Visit Provider Urology
DX: C61 Malignant neoplasm of prostate (principal)
CPT/HCPCS: 36415; 84153; G0103

== ENCOUNTER → 2019-01-16 09:43 | Outpatient (CLI) | payer MEDICARE, OTHER, SELFPAY ==
[2017-02-16 13:24] VITALS: BMI 31.9
[2019-01-16 10:48] LABS: PSA,Total- Diagnostic < 0.01 ng/mL (0.0-4.0)
== END ==
PROVIDERS: Family Provider Family Medicine; PCP Family Medicine; Referring Provider Urology; Visit Provider Urology
DX: C61 Malignant neoplasm of prostate (principal)
CPT/HCPCS: 36415; 84153

== ENCOUNTER → 2020-08-05 14:53 | Outpatient (CLI) | payer MEDICARE, OTHER, SELFPAY ==
[2017-02-16 13:24] VITALS: BMI 31.9
--- NOTE | 2020-08-05 14:49 | CYSPIN_PTH ---
PATIENT: HUNTER TESFAYE LOC: LAB U#:[id number] AGE/SX: 74/M ROOM: RE08/05/[address]: Dr. Jem Mccall MD : 1950 BED: DIS: SPEC #: [id number] RECD: 08/06/20 06:53 STATUS: ZOE REJerad #: [id number] [place]: 08/05/20 14:[address]: Jem Mccall DEPT: CYTOLOGY RECD BY: Donna Barrett ENTERED: 08/06/20 06:53 SP TYPE: CYSPIN FL OTHR DR: Dr. Estephanie Lockhart MD Tissues: Urine Procedures: Pap Stain (control) Special Stain Group II Cytospin Fluid HEADER OPERATION: Not noted PRE-OP DIAGNOSIS: Gross hematuria, prostate cancer TISSUE SUBMITTED: Urine for cytology DIAGNOSIS CYTOLOGY Urine for cytology (cytospin): Negative for malignant cells. AM:diogenes 08/06/2020 CYTOLOGY STUDY Slides are reviewed. CYTOLOGY GROSS Received is 20 ml of yellow cloudy fluid labeled with the patient's name and and designated per the requisition as urine. Submitted for cytology preparation. / diogenes 08/05/20 TC:5 CPT: 24927
[2020-08-05 15:48] LABS: Cytology, Body Fluid / CSF SEE PATHOLOGY REPORT
[2020-08-05 16:44] LABS: PSA,Total- Diagnostic 0.03 ng/mL (0.0-4.0)
== END ==
PROVIDERS: PCP Family Medicine; Referring Provider Urology; Visit Provider Urology
DX: C61 Malignant neoplasm of prostate (principal); R31.0 Gross hematuria
CPT/HCPCS: 36415; 84153; 88108; 88313

== ENCOUNTER 2020-08-13 07:33 | Day surgery (SDC) | payer MEDICARE, OTHER, SELFPAY ==
[2020-08-13] VITALS (10 sets, daily range): BP systolic 142–161; BP diastolic 78–98; PULSE 53–74; RESP 16–18; TEMP 35.9–36.7; O2SAT 95–98; BMI 30.2
--- NOTE | 2020-08-13 07:45 | CT_ITS ---
STUDY: CT ABDOMEN AND PELVIS WITHOUT CONTRAST REASON FOR EXAM: Male, 70 years old. Right flank pain. History of renal calculi. RADIATION DOSAGE (If Supplied By Facility): CTDIvol = ( 10.99 ) mGy, DLP = ( 612.48 ) mGycm TECHNIQUE: Transaxial images were obtained from the dome of the diaphragm to the symphysis pubis without oral contrast, and without intravenous contrast. Sagittal and coronal images were reconstructed. Individualized dose optimization techniques were used for this CT. COMPARISON: Comparison is made with prior study dated 12/24/2016. FINDINGS: Minimal degree of increased markings at the lung bases suggestive of bibasilar atelectasis. Coronary artery calcification. Normal liver. Normal gallbladder and extrahepatic biliary system. Normal spleen. Normal pancreas. Normal bilateral adrenal glands. There is evidence of a right perinephric stranding. 2 mm nonobstructive calculus in the upper pole of the right kidney. Mild degree of right hydronephrosis and hydroureter due to a 5 mm calculus in the distal portion of the right ureter just proximal to the ureterovesical junction. Nonobstructive left intrarenal calculi. The largest measures 7 mm. There is evidence of a 2.5 cm cyst in the inferior medial aspect of the left kidney. Normal visualized stomach. Normal small intestine. There are scattered colonic diverticula consistent with diverticulosis. The appendix is visualized and appears normal. There is scattered atherosclerotic calcification of the abdominal aorta, without a demonstrated aneurysm. Normal inferior vena cava. Normal retroperitoneum. Normal urinary bladder. There is a small umbilical hernia containing fat. There are diffuse degenerative changes of the visualized lumbar spine. CT/Abdomen/Pelvis without Cont IMPRESSION: 5 mm obstructive calculus in distal portion of the right ureter causing right hydronephrosis and hydroureter with right perinephric stranding. Nonobstructive bilateral intrarenal calculi. Stable left renal cyst. Electronically Signed: Fabio Collins MD at 8:48 EDT , Service support ,
--- NOTE | 2020-08-13 07:56 | EX.ED.DYSGE1 ---
HPI History of Present Illness Chief Complaint: Flank Pain Informant: patient Onset/Context/Timing Onset: Days Timing: Intermittent Current Severity: Moderate Maximum Severity: Moderate Narrative Narrative: Patient presents secondary to right flank pain. He has a history of kidney stones states last week he had some pain and then passed some blood in his urine. He had intermittent pain over the weekend and then again worsened last evening. Last dose of ibuprofen was approximately 8 hours ago. He did vomit this morning after trying to drink coffee. He denies any obvious blood in his urine this morning. Patient states he has required basket retrieval for kidney stones in the past. He also has a history of prostate cancer had his prostate removed 3 years ago. [facility] Medical History (Updated 08/13/20 @ 09:[address] Saige Sheets MD) Benign prostatic hyperplasia (BPH) with urinary urgency Kidney stones Prostate cancer Home Medications aspirin 81 mg PO DAILY@0800 02/01/17 [History Last Taken 02/02/17 08:00 1] fluticasone propionate 1 spray NASAL DAILY PRN 02/01/17 [History Last Taken Unknown] ciprofloxacin HCl 500 mg PO DAILY #20 tab 02/17/17 [Rx Last Taken Unknown] docusate sodium 100 mg PO BID #20 cap 02/17/17 [Rx Last Taken Unknown] hydrocodone-acetaminophen 1 ea PO Q4H PRN PRN #14 tab 02/17/17 [Rx Last Taken Unknown] Allergy/AdvReac Type Severity Reaction Status Date / Time No Known Allergies Allergy Verified 08/13/20 07:34 Surgical History (Updated 08/13/20 @ 07:[address] Saige Sheets MD) H/O prostatectomy Social History Smoking Status: Never smoker ROS ROS ED Constitutional Constitutional ED: Denies chills or fever(s) Eyes Eyes: Denies change in vision ENT ENT ED: Denies sore throat Cardiovascular Cardiovascular: Denies chest pain Respiratory/Chest Respiratory/Chest: Denies cough or dyspnea Gastrointestinal Gastrointestinal: Reports abdominal pain, nausea and vomiting; Denies diarrhea Genitourinary Genitourinary ED: Denies dysuria or hematuria Musculoskeletal Musculoskeletal: Denies back pain Integumentary Denies rash Neurologic Neurologic: Denies headache(s) or weakness Psychiatric Psychiatric: Denies anxiety or depression Endocrine Endocrinology: Denies polydipsia or polyuria Allergic/Immunologic Allergic/Immunologic ED: Denies urticaria EXAM Physical Exam Const Vital Signs: 08/13/20 07:34 Temperature 97.9 F Temperature Source Oral Pulse Rate 65 Respiratory Rate 18 Blood Pressure 150/82 H Blood Pressure Mean 104 Pulse Ox 95 Oxygen Delivery Method Room Air Positive well nourished and well developed General Appearance ED: well developed HEENT Reports normocephalic and head/scalp atraumatic Eyes PERRL and EOMs intact bilaterally Neck supple Chest Wall inspection of chest normal and palpation of chest normal Resp normal respiratory effort and clear to auscultation bilaterally Cardio regular rate and regular rhythm GI non-tender Auscultation: hypoactive bowel sounds Palpation: soft Back/Spine no CVA tenderness Extremity normal to inspection Neuro oriented x3 and no sensory deficits noted Sensorium / Orientation: alert Motor Exam: strength 5/5 throughout Psych mental status grossly normal Skin no rashes or lesions noted MDM MDM MDM Narrative Medical decision making narrative: Patient was given 2 mg morphine, 15 mg Toradol, Zofran, IV fluids. Labs, urinalysis, CT flank obtained. Lab Data Attestation: I reviewed the patient's lab results. Labs: Laboratory Results - last 24 hr 08/13/20 08/13/20 08/13/20 07:55 07:55 09:13 WBC 8.8 RBC 4.84 Hgb 14.3 Hct 42.9 MCV 88.6 MCH 29.5 MCHC 33.3 RDW Std Deviation 42.1 RDW Coeff of Cira 12.9 Plt Count 205 MPV 9.4 Immature Gran % (Auto) 0.200 Neut % (Auto) 83.1 H Lymph % (Auto) 9.9 L [place] % (Auto) 6.5 Eos % (Auto) 0.1 Baso % (Auto) 0.2 Absolute Neuts (auto) 7.3 Absolute Lymphs (auto) 0.87 Nucleated RBC % 0 Sodium 140 Potassium 4.5 Chloride 111 H Carbon Dioxide 26.0 Anion Gap 3 L BUN 26 H Creatinine 1.67 H Estim Creat Clear Calc 38.68 Est GFR (MDRD) Af Amer 52 L Est GFR (MDRD) Non-Af 43 L BUN/Creatinine Ratio 15.6 Glucose 127 H Calcium 8.9 Urine Color Yellow Urine Clarity Sl. Cloudy Urine pH 5.0 Ur Specific [place] 1.020 Urine Protein 15 H Urine Glucose (UA) Normal Urine Ketones 5 H Urine Occult Blood 250 H Urine Nitrite Negative Urine Bilirubin Negative Urine Urobilinogen Normal Ur Leukocyte Esterase 25 H Urine RBC 10-25 SEEN Urine WBC 0 SEEN Ur Squamous Epith Cells 0 SEEN Urine Bacteria 0 SEEN Urine Mucus 0 SEEN Radiography Diagnostic Testing: Radiology Impression Abdomen/Pelvis CT 08/13/20 07:45 IMPRESSION: 5 mm obstructive calculus in distal portion of the right ureter causing right hydronephrosis and hydroureter with right perinephric stranding. Nonobstructive bilateral intrarenal calculi. Stable left renal cyst. Electronically Signed: Fabio Collins MD at 8:48 EDT , Service support , Treatment and Re-Evaluation Comments:: On repeat evaluation patient states his pain is very minimal. Creatinine is 1.67 today. This is elevated from prior, however last creatinine available for review was from 2018. Patient does have evidence of a distal 5 mm obstructing calculus with hydro and perinephric stranding. Patient was discussed with Dr. Mccall, his urologist. Dr. Mccall is in surgery today and willing to go ahead and place a stent/remove stone as needed. Patient prefer to have this done today and taken care of. Patient will go from the ER to the operating room when they are ready. Discharge Plan Triage Chief Complaint: Flank Pain ED Provider: Saige Sheets Dx/Rx/DC Orders Clinical Impression: Ureterolithiasis Prescriptions: No Action aspirin 81 MG tablet 81 mg PO DAILY@0800 RF: 0 fluticasone propionate 1 SPRAY Nasal.Sry 1 spray NASAL DAILY PRN (Reason: Nasal Congestion) RF: 0 hydrocodone-acetaminophen 1 EACH tablet 1 ea PO Q4H PRN PRN (Reason: Pain) Qty: 14 RF: 0 ciprofloxacin HCl 500 MG tablet 500 mg PO DAILY Qty: 20 RF: 0 docusate sodium 100 MG capsule 100 mg PO BID Qty: 20 RF: 0 Primary Care Provider: Estephanie Lockhart Referrals: Estephanie Lockhart MD [Primary Care Provider] - Disposition Disposition: Acute Care [facility]
[2020-08-13 08:04] LABS: Absolute Lymphocyte Count 0.87 X10^3/uL (0.83-4.51); Absolute Neutrophil Count 7.3 X10^3/uL (2.0-7.7); Basophil# 0.02 X10^3/uL; Basophil% 0.2 % (0-1); Eosinophil# 0.01 X10^3/uL; Eosinophils% 0.1 % (0-5); Hematocrit 42.9 % (40-54); Hemoglobin 14.3 g/dL (13.0-16.5); Lymphocyte # 0.87 X10^3/ul (0.83-4.51); Lymphocyte % 9.9 % (19-41); Mean Corp Hgb Conc 33.3 g/dL (32-36); Mean Corpuscular Hgb 29.5 pg (27.0-32.0); Mean Corpuscular Volume 88.6 fL (80-94); Mean Platelet Vol. 9.4 fl (6.2-12.0); Monocyte# 0.57 X10^3/uL; Monocyte% 6.5 % (0-10); NRBC Flagged by Analyzer 0 % (0-5); Neutrophil # 7.27 X10^3/uL (2.7-7.7); Neutrophil % 83.1 % (47-70); Platelet Count 205 K/mm3 (150-450); RBC Distribution Width CV 12.9 % (11.6-14.6); RBC Distribution Width SD 42.1 fl (35.1-43.9); Red Blood Count 4.84 M/mm3 (4.6-6.2); White Blood Count 8.8 K/mm3 (4.4-11.0)
[2020-08-13] MEDS: Ketorolac 15 MG/ML Vial IV ×2 (08:05→15:29)
[2020-08-13] MEDS: Morphine 2 MG/ML Syringe IV ×2 (08:05→13:31)
[2020-08-13] MEDS: 0.9% Normal Saline 1,000 ML 250 ML IV (08:05)
[2020-08-13] MEDS: Ondansetron 4 MG/2 ML Vial IV (08:05)
[2020-08-13 08:15] LABS: Anion Gap 3 (5-15); BUN 26 mg/dL (7-18); BUN/Creat Ratio 15.6 RATIO (10-20); Calcium,Total 8.9 mg/dL (8.5-10.1); Chloride 111 mmol/L (98-107); Creatinine, Serum 1.67 mg/dL (0.70-1.30); EST Glomerular Filtration Rate 43 mL/min (>60); Est Glom Filt Rate - Afr Amer 52 mL/min (>60); Estimated Creatinine Clearance 38.68 ml/min; Glucose 127 mg/dL (74-106); Potassium 4.5 mmol/L (3.5-5.1); Sodium Level 140 mmol/L (136-145)
[2020-08-13 09:18] LABS: Bacteria 0 SEEN /hpf (None Seen); Mucous, Urine 0 SEEN /hpf (<or=2+); Squamous Epithelial Cells - UA 0 SEEN /hpf (0-5); White Blood Cells 0 SEEN /hpf (0-5)
[2020-08-13 09:20] LABS: Color, Urine Yellow (Yellow); Glucose, Dipstick Normal (Normal); Ketone-Dipstick 5 mg/dl (Negative); Leukocyte Esterase-Dipstick 25 /ul (Negative); Nitrite-Dipstick Negative (Negative); Occult Blood-Urine 250 /ul (Negative); Protein-Dipstick 15 mg/dl (Negative); Urine Bilirubin Dipstick Negative (Negative); Urine Clarity Sl. Cloudy (Clear); Urine Urobilinogen Normal (Normal)
[2020-08-13 09:31] LABS: Red Blood Cells-Urine 10-25 SEEN /hpf (0-5)
--- NOTE | 2020-08-13 09:48 | HP.PCM_ITS ---
HPI - General HPI Narrative HUNTER TESFAYE, is a 70 M who presents to the hospital with obstructing stone in distal right ureter with right hydronephrosis and severe pain. Patient to be admitted and plan to take the surgery today for laser lithotripsy and removal of stone possible stent. [facility] Medical History (Updated 08/13/20 @ 09:[address] Saige Sheets MD) Benign prostatic hyperplasia (BPH) with urinary urgency Kidney stones Prostate cancer Home Medications aspirin 81 mg PO DAILY@0800 02/01/17 [History Last Taken 02/02/17 08:00 1] fluticasone propionate 1 spray NASAL DAILY PRN 02/01/17 [History Last Taken Unknown] ciprofloxacin HCl 500 mg PO DAILY #20 tab 02/17/17 [Rx Last Taken Unknown] docusate sodium 100 mg PO BID #20 cap 02/17/17 [Rx Last Taken Unknown] hydrocodone-acetaminophen 1 ea PO Q4H PRN PRN #14 tab 02/17/17 [Rx Last Taken Unknown] ciprofloxacin HCl [Cipro] 500 mg PO BID #6 tab 08/13/20 [Rx Last Taken Unknown] oxycodone-acetaminophen 1 tab PO Q4H PRN 7 Days #10 tab 08/13/20 [Rx Last Taken Unknown] Allergy/AdvReac Type Severity Reaction Status Date / Time No Known Allergies Allergy Verified 08/13/20 07:34 Surgical History (Updated 08/13/20 @ 07:[address] Saige Sheets MD) H/O prostatectomy Social History Smoking Status: Never smoker ROS Constitutional Constitutional: Denies chills, fever(s) or malaise Eyes Eyes: Denies blurry vision or change in vision ENT HEENT: Reports none Cardiovascular Cardiovascular: Denies chest pain or palpitations Respiratory/Chest Respiratory/Chest: Denies cough or shortness of breath with exertion Gastrointestinal Gastrointestinal: Denies abdominal pain, constipation or diarrhea Musculoskeletal Musculoskeletal: Denies back pain, joint stiffness or joint swelling Integumentary Integumentary: Denies dry skin, jaundice, lesions or rash Neurologic Neurologic: Denies confusion, syncope or weakness Psychiatric Psychiatric: Reports none; Denies anxiety or depression Endocrine Endocrinology: Denies excessive sweating, fatigue or flushing Hematologic/Lymphatic Hematologic/Lymphatic: Denies anemia, easy bleeding or easy bruising Vital Signs Vital Signs Vital Signs: 08/13/20 07:34 Temperature 97.9 F Temperature Source Oral Pulse Rate 65 Respiratory Rate 18 Blood Pressure 150/82 H Blood Pressure Mean 104 Pulse Ox 95 Oxygen Delivery Method Room Air Weight Weight: 90.3 kg Body Mass Index (BMI) 30.2 Physical Exam Const alert and oriented x3 General Appearance: cooperative HEENT normocephalic, head/scalp atraumatic, EAC's normal and TM's normal bilaterally Eyes PERRL and EOMs intact bilaterally Pupil: sluggish Neck no lymphadenopathy, supple and no JVD General: trachea midline Lymph Lymphatic: no lymphadenopathy noted, lymphedema and lymphadenopathy Resp normal respiratory effort, normal air movement and clear to auscultation bilaterally Cardio regular rate, regular rhythm and peripheral pulses 2+ throughout GI soft to palpation, non-tender and non-distended Extremity normal capillary refill and no clubbing, cyanosis or edema General Extremity: no tenderness to palpation of joints or extremities Skin no rashes or lesions noted General Skin Exam: turgor normal Lesions: no lesions Rashes: no rashes Neuro CN's II-XII intact bilaterally Speech: speech normal Motor Exam: strength 5/5 throughout; Negative for general weakness Psych thought process normal, cooperative and affect normal Appearance: appropriate Results Lab / Micro Data Result Diagrams: 08/13/20 07:55 08/13/20 07:55 Labs: Laboratory Results - last 24 hr 08/13/20 08/13/20 08/13/20 07:55 07:55 09:13 WBC 8.8 RBC 4.84 Hgb 14.3 Hct 42.9 MCV 88.6 MCH 29.5 MCHC 33.3 RDW Std Deviation 42.1 RDW Coeff of Cira 12.9 Plt Count 205 MPV 9.4 Immature Gran % (Auto) 0.200 Neut % (Auto) 83.1 H Lymph % (Auto) 9.9 L [place] % (Auto) 6.5 Eos % (Auto) 0.1 Baso % (Auto) 0.2 Absolute Neuts (auto) 7.3 Absolute Lymphs (auto) 0.87 Nucleated RBC % 0 Sodium 140 Potassium 4.5 Chloride 111 H Carbon Dioxide 26.0 Anion Gap 3 L BUN 26 H Creatinine 1.67 H Estim Creat Clear Calc 38.68 Est GFR (MDRD) Af Amer 52 L Est GFR (MDRD) Non-Af 43 L BUN/Creatinine Ratio 15.6 Glucose 127 H Calcium 8.9 Urine Color Yellow Urine Clarity Sl. Cloudy Urine pH 5.0 Ur Specific [place] 1.020 Urine Protein 15 H Urine Glucose (UA) Normal Urine Ketones 5 H Urine Occult Blood 250 H Urine Nitrite Negative Urine Bilirubin Negative Urine Urobilinogen Normal Ur Leukocyte Esterase 25 H Urine RBC 10-25 SEEN Urine WBC 0 SEEN Ur Squamous Epith Cells 0 SEEN Urine Bacteria 0 SEEN Urine Mucus 0 SEEN Radiology Impression Abdomen/Pelvis CT 08/13/20 07:45 IMPRESSION: 5 mm obstructive calculus in distal portion of the right ureter causing right hydronephrosis and hydroureter with right perinephric stranding. Nonobstructive bilateral intrarenal calculi. Stable left renal cyst. Electronically Signed: Fabio Collins MD at 8:48 EDT , Service support , Assessment & Plan Assessment/Plan (1) Ureterolithiasis: PLAN: Keep n.p.o., added onto the schedule for today for ureteroscopy laser lithotripsy and removal stone causing obstruction.
--- NOTE | 2020-08-13 09:48 | NURSING ---
SURGERY ROSI URETEROLITHIASIS
[2020-08-13] MEDS: Lactated Ringers 1,000 ML 75 ML IV (10:11)
--- NOTE | 2020-08-13 10:20 | NURSING ---
AC4 SURGERY AT 1400
[2020-08-13] MEDS: Cefazolin 2 GM in 0.9% Normal Saline 100 ML IV (14:47)
--- NOTE | 2020-08-13 15:10 | OP.PCM_ITS ---
Report of Operation Date of Procedure: 08/13/20 Pre-Operative Diagnosis: 5 mm stone in distal right ureter Post-Operative Diagnosis: Same Surgery/Procedure Performed:: Cystoscopy, balloon dilation of the right ureter, right ureteroscopy basket extraction of stone no stent placement Description of Surgical Findings:: This is a patient who presents to the hospital for treatment for an obstructing distal ureter calculi. I discussed with the patient how the surgery would be performed and we reviewed the risks and benefits of the surgery. The risk and benefits include the risk of failure to remove the stone completely and that the patient may need multiple procedures. We discussed the risk of an infection, the risk of bleeding. We discussed the very rare risk of serious complicated injury to the ureter. The patient understands that if the stone is not able to be removed safely that we may abort the procedure and place a stent. After full discussion and all questions address with the patient the consent form was signed the side was marked appropriately and the patient was taken back to the operating room for the procedure. The patient was taken back to the operating room. After induction of anesthesia by the anesthesiology team the patient was placed in dorsolithotomy position. The genitals were prepped and draped in usual sterile fashion. I went into the bladder with a 21 Swedish rigid cystourethroscope through the urethra. Upon entering the bladder I inspected the trigone the left and right ureteral orifice and the bladder itself. I then cannulated the ureteral orifice and advanced a 0.038 Glidewire up into the kidney. Then over the Glidewire I advanced a 5 Fr Ureteral catheter and performed a retrograde pyelogram with about 10cc of contrast, to delineate the anatomy and identify the stone location. Then a ureteral balloon dilator was advanced over the wire and the distal ureter was balloon dilated with a 12 Fr x 5cm balloon dilator. After 3 minutes of dilating the ureter the balloon was backloaded off the 0.038 glidewire then the safety wire was left in place. I then placed a second 0.038 Guidewire as a working wire and over the working 0.038 guidewire I went in with the manolo rigide 7.5fr ureteroscope. I was able to go inside with the 7.5Fr manolo rigid utereroscope and I pulled out the working guidewire and then through the 7.5 fr simirigid ureteroscope basketed the stone and carefully removed it from the distal ureter and sent as a specimen. A retrograde pyelogram was performed with 10cc of contrast and no extravasation of contrast or perforation was identified in the ureter there was some mild irritation of the ureter where the stone was located. I then backed out of the ureter. Bladder was drained and patient anesthetic reversed. The patient was given discharge instructions to call the office for instructions on when to come to the office for a check up. Surgeon: melani Type of Anesthesia: General Drains: none Admit VTE Documentation VTE Present on Admission: No VTE Mechan Device Prophylaxis: SCD's
== END 2020-08-13 17:08 | disposition home or self-care (01) ==
LOC: ED 09:45 → SDC 10:03 → AC 10:06
PROVIDERS: Emergency Provider Emergency Medicine; PCP Family Medicine; Visit Provider Urology
PROC: 0TJ98ZZ Inspection of Ureter, Via Natural or Artificial Opening Endoscopic (ICD-10-PCS; CPT 52352; principal; 2020-08-13 13:55)
DX: N13.2 Hydronephrosis with renal and ureteral calculous obstruction (principal); Z79.82 Long term (current) use of aspirin; Z79.899 Other long term (current) drug therapy; Z87.442 Personal history of urinary calculi; Z85.46 Personal history of malignant neoplasm of prostate; Z90.79 Acquired absence of other genital organ(s)
CPT/HCPCS: 52352; 74176; 76000; 80048; 81001; 82360; 85025; 99282; J7030; J7120; A4216; C1726; C1769; J2405

== ENCOUNTER 2021-03-23 14:19 | Outpatient (CLI) | payer MEDICARE, OTHER, SELFPAY ==
[2021-03-23 15:10] LABS: PSA,Total- Diagnostic 0.02 ng/mL (0.0-4.0)
== END 2021-03-23 23:59 | disposition home or self-care (01) ==
PROVIDERS: PCP Family Medicine; Visit Provider Urology
DX: C61 Malignant neoplasm of prostate (principal)
CPT/HCPCS: 36415; 84153

== ENCOUNTER → 2021-09-28 | Outpatient (CLI) | payer MEDICARE, OTHER, SELFPAY ==
[2021-09-28 16:16] LABS: PSA,Total- Diagnostic 0.04 ng/mL (0.0-4.0)
== END | disposition home or self-care (01) ==
PROVIDERS: PCP Family Medicine; Visit Provider Urology
DX: C61 Malignant neoplasm of prostate (principal)
CPT/HCPCS: 36415; 84153

== ENCOUNTER → 2022-04-06 | Outpatient (CLI) | payer MEDICARE, SELFPAY ==
[2022-04-06 11:33] LABS: Absolute Lymphocyte Count 1.41 X10^3/uL (0.83-4.51); Basophil# 0.04 X10^3/uL; Basophil% 0.6 % (0-1); Color, Urine Yellow (Yellow); Eosinophil# 0.08 X10^3/uL; Eosinophils% 1.3 % (0-5); Glucose, Dipstick Normal (Normal); Hematocrit 43.7 % (40-54); Hemoglobin 14.8 g/dL (13.0-16.5); Ketone-Dipstick Negative (Negative); Leukocyte Esterase-Dipstick Negative /ul (Negative); Lymphocyte # 1.41 X10^3/ul (0.83-4.51); Lymphocyte % 22.9 % (19-41); Mean Corp Hgb Conc 33.9 g/dL (32-36); Mean Corpuscular Hgb 30.3 pg (27.0-32.0); Mean Corpuscular Volume 89.5 fL (80-94); Monocyte# 0.57 X10^3/uL; Monocyte% 9.3 % (0-10); NRBC Flagged by Analyzer 0 % (0-5); Neutrophil # 4.04 X10^3/uL (2.7-7.7); Neutrophil % 65.6 % (47-70); Nitrite-Dipstick Negative (Negative); Occult Blood-Urine Negative /ul (Negative); Platelet Count 214 K/mm3 (150-450); Protein-Dipstick 15 mg/dl (Negative); RBC Distribution Width CV 12.6 % (11.6-14.6); RBC Distribution Width SD 41.3 fl (35.1-43.9); Red Blood Count 4.88 M/mm3 (4.6-6.2); Specific Gravity, Urine 1.015 (1.002-1.030); Urine Bilirubin Dipstick Negative (Negative); Urine Clarity Clear (Clear); Urine Urobilinogen Normal (Normal); Urine pH 6.5 (5.0 - 8.0); White Blood Count 6.2 K/mm3 (4.4-11.0)
[2022-04-06 11:49] LABS: Hemoglobin A1c 5.6 % (3.8-5.6); Microalbumin,Random Urine 14.8 mg/L (NO RANGE EST.)
[2022-04-06 12:29] LABS: Vitamin B12 672 pg/mL (211-911)
[2022-04-06 12:36] LABS: ALB/GLOB Ratio 1.2 RATIO (0.9-2.4); AST(SGOT) 19 U/L (15-37); Alanine Aminotransfer ALT/SGPT 24 U/L (16-61); Albumin, Serum 3.8 g/dL (3.2-5.0); Alkaline Phosphatase 83 U/L (45-117); Anion Gap 5 (5-15); BUN 19 mg/dL (7-18); BUN/Creat Ratio 16.1 RATIO (10-20); Calcium,Total 9.1 mg/dL (8.5-10.1); Chloride 108 mmol/L (98-107); Cholesterol 113 mg/dL (200); Creatinine, Serum 1.18 mg/dL (0.70-1.30); EST Glomerular Filtration Rate 64 mL/min (>60); Est Glom Filt Rate - Afr Amer 78 mL/min (>60); Globulin 3.2 g/dL (2.2-4.2); Glucose 104 mg/dL (74-106); High Density Lipoprotein 46 mg/dL; PSA,Total- Diagnostic 0.06 ng/mL (0.0-4.0); Potassium 4.4 mmol/L (3.5-5.1); Sodium Level 141 mmol/L (136-145); Thyroid Stim Hormone (TSH) 1.27 uIU/mL (0.358-3.74); Triglycerides 103 mg/dL; Very Low Density Lipoprotein 21 mg/dL (5-40)
== END | disposition home or self-care (01) ==
PROVIDERS: PCP Family Medicine; Visit Provider Family Medicine
DX: Q21.11 Secundum atrial septal defect (principal); C61 Malignant neoplasm of prostate; N20.0 Calculus of kidney; I35.1 Nonrheumatic aortic (valve) insufficiency; I10 Essential (primary) hypertension; R73.03 Prediabetes; Z23 Encounter for immunization
CPT/HCPCS: 36415; 80053; 80061; 81002; 82043; 82607; 83036; 84153; 84443; 85025

== ENCOUNTER → 2022-10-04 | Outpatient (CLI) | payer MEDICARE, SELFPAY ==
[2022-10-04 14:49] LABS: PSA,Total- Diagnostic 0.08 ng/mL (0.0-4.0)
== END | disposition home or self-care (01) ==
LOC: LAB 13:33
PROVIDERS: PCP Family Medicine; Referring Provider Nurse Practitioner; Visit Provider Nurse Practitioner
DX: C61 Malignant neoplasm of prostate (principal)
CPT/HCPCS: 36415; 84153

== ENCOUNTER → 2023-04-05 | Outpatient (CLI) | payer MEDICARE, SELFPAY ==
[2023-04-05 11:46] LABS: PSA,Total- Diagnostic 0.11 ng/mL (0.0-4.0)
== END | disposition home or self-care (01) ==
PROVIDERS: PCP Family Medicine; Referring Provider Urology; Visit Provider Nurse Practitioner
DX: C61 Malignant neoplasm of prostate (principal)
CPT/HCPCS: 36415; 84153

== ENCOUNTER → 2023-06-01 | Outpatient (CLI) | payer MEDICARE, SELFPAY ==
--- NOTE | 2023-06-01 14:26 | CT_ITS ---
STUDY: CT ABDOMEN AND PELVIS WITH CONTRAST REASON FOR EXAM: Male, 73 years old. HX URINARY STONES. Left flank pain. Hematuria. History of prostate cancer with resection of the prostate. RADIATION DOSAGE (If Supplied By Facility): CTDIvol = ( 15.9 ) mGy, DLP = ( 1113.47 ) mGycm TECHNIQUE: Transaxial images were obtained from the dome of the diaphragm to the symphysis pubis without oral contrast. IV 100mL Isovue-300 was administered. Sagittal and coronal images were reconstructed. Individualized dose optimization techniques were used for this CT. COMPARISON: Comparison is made with prior study dated August 13, 2020. FINDINGS: Stable minimal degree of increased markings at the lung bases suggestive of scarring. Coronary artery calcification. There is decreased attenuation of the liver consistent with steatosis. Normal gallbladder and extrahepatic biliary system. Normal spleen. Normal pancreas. Normal bilateral adrenal glands. There is a 5.1 mm calculus in the upper pole calyx of the right kidney. 8.6 mm cyst in the upper medial portion of the right kidney. Nonobstructive 4.8 mm calculus in the lower pole calyx of the left kidney. There is a 2.9 cm x 2.9 cm cyst in the inferior medial pole of the left kidney. Normal visualized stomach. Normal small intestine. There are scattered colonic diverticula consistent with diverticulosis. The appendix is visualized and appears normal. Normal abdominal aorta. Normal inferior vena cava. Normal retroperitoneum. The urinary bladder is contracted. The patient is status post cholecystectomy. Normal abdominal wall. There are diffuse degenerative changes of the visualized lumbar spine. CT/Abdomen/Pelvis WITH Contrast IMPRESSION: Small bilateral intrarenal nonobstructing calculi. Stable small bilateral renal cysts. Fatty infiltration of the liver. Status post prostatectomy. Electronically Signed: Fabio Collins MD at 15:07 EDT ,
[2023-06-01 14:53] LABS: CREATININE FINGERSTICK < 1.0 mg/dL (0.70-1.30); EGFR FINGERSTICK > 60.0000 mL/min (>60)
== END | disposition home or self-care (01) ==
LOC: CT 14:25
PROVIDERS: PCP Family Medicine; Referring Provider Urology; Visit Provider Urology
DX: Z87.442 Personal history of urinary calculi (principal)
CPT/HCPCS: 74177; Q9967

== ENCOUNTER → 2023-06-08 | Outpatient (CLI) | payer MEDICARE, SELFPAY ==
--- NOTE | 2023-06-08 08:30 | FLU_PTH ---
PATIENT: HUNTER TESFAYE LOC: [facility] U#:[id number] AGE/SX: 73/M ROOM: RE06/08/[address]: Dr. Dre Edge MD : [id number] BED: DIS: 06/08/2023 SPEC #: [id number] RECD: 06/08/23 11:42 STATUS: ZOE GINETTE #: [id number] [place]: 06/08/23 08:[address]: Dre Edge DEPT: CYTOLOGY RECD BY: Donna Barrett ENTERED: 06/08/23 13:42 SP TYPE: Fluid OTHR DR: Dr. Estephanie Lockhart MD Tissues: A - Thyroid gland, NOS B - Thyroid gland, NOS Procedures: Special Stain Group II Surgery Specimen Level IV Cytospin Fluid Cytology Other HEADER OPERATION: Fine needle aspiration of thyroid nodule PRE-OP DIAGNOSIS: Right thyroid nodule TISSUE SUBMITTED: A- Right mid thyroid nodule fluid, B- Right mid thyroid (smears) DIAGNOSIS CYTOLOGY A. Right mid thyroid nodule fluid, fine needle aspiration (cytospin and cellblock): Consistent with benign follicular/colloid nodule with extensive cystic changes. [place] Category II. Adequate for evaluation. B. Right mid thyroid nodule, fine needle aspiration (smears): Consistent with benign follicular/colloid nodule with extensive cystic changes. [place] Category II. Adequate for evaluation. /mr 06/09/2023 COMMENT Correlation with clinical, radiologic findings and appropriate follow up are necessary. CYTOLOGY STUDY Slides are reviewed. CYTOLOGY GROSS A. Received is 30 ml of light pink fluid labeled with the patient's name and and designated per the requisition as Right mid thyroid nodule. Submitted for cytology preparation including cell block. B. Received are 4 smears labeled with the patient's name and designated per the requisition as Right mid thyroid nodule. Submitted for staining. Mr 06/08/2023 TC:5 CPT: 90730a0, 77751
== END | disposition home or self-care (01) ==
LOC: LABSPEC 11:44
PROVIDERS: PCP Family Medicine; Referring Provider Surgery; Visit Provider Surgery
DX: E04.1 Nontoxic single thyroid nodule (principal)
CPT/HCPCS: 88108; 88161; 88305; 88313

== ENCOUNTER → 2023-06-10 | Outpatient (CLI) | payer MEDICARE, SELFPAY ==
[2023-06-10 17:19] LABS: Calcium,Total 9.2 mg/dL (8.5-10.1)
[2023-06-10 17:25] LABS: PTHIN 79.8 pg/mL (18.4-80.1)
[2023-06-13 11:07] LABS: Vitamin D 1,25-Dihydroxy 62.2 pg/mL (24.8-81.5)
== END | disposition home or self-care (01) ==
LOC: LAB 16:02
PROVIDERS: PCP Family Medicine; Referring Provider Surgery; Visit Provider Surgery
DX: E04.1 Nontoxic single thyroid nodule (principal)
CPT/HCPCS: 36415; 82310; 82652; 83970

== ENCOUNTER → 2024-05-10 | Outpatient (CLI) | payer MEDICARE, SELFPAY ==
--- NOTE | 2024-05-10 12:30 | US_ITS ---
PROCEDURE: THYROID 05/10/2024 REASON FOR EXAM: 74-year-old male, 1 YEAR SURVEILLANCE TECHNIQUE: Thyroid ultrasound COMPARISON: Thyroid ultrasound 05/11/2023. FINDINGS: Right thyroid lobe measures 5.5 x 4.0 x 2.7 cm. Left thyroid lobe measures 4.1 x 1.6 x 1.7 cm. Isthmus thickness is0.3 cm. Thyroid Size: Normal Background Echotexture: Heterogeneous Thyroid Nodules: Right: One nodule: 4.9 x 2.9 x 2.3 cm, mixed cystic and solid, isoechoic, wider than tall, smooth margins without calcification. TR-2, NOT suspicious. Left: Two nodules: *Superior: 1.8 x 1.4 x 1.1 cm, mixed cystic and solid, isoechoic, wider than tall, smooth margins without calcification. TR-2, NOT suspicious. *Inferior: 1.0 x 1.0 x 0.6 cm, mixed cystic and solid, isoechoic, wider than tall, smooth margins without calcification. TR-2, NOT suspicious. US/Thyroid IMPRESSION: Bilateral thyroid nodules which are NOT suspicious, and do not meet criteria fo r dedicated follow-up by ACR TI-RADS criteria. Reading Location: [facility]
== END | disposition home or self-care (01) ==
LOC: US 12:28
PROVIDERS: PCP Family Medicine; Referring Provider Surgery; Visit Provider Surgery
DX: E04.2 Nontoxic multinodular goiter (principal); E04.1 Nontoxic single thyroid nodule
CPT/HCPCS: 76536

== ENCOUNTER → 2024-06-11 | Outpatient (CLI) | payer MEDICARE, SELFPAY ==
[2024-06-11 14:54] LABS: PSA,Total- Diagnostic 0.13 ng/mL (0.00-4.00)
== END | disposition home or self-care (01) ==
LOC: LAB 11:15
PROVIDERS: PCP Family Medicine; Referring Provider Urology; Visit Provider Urology
DX: C61 Malignant neoplasm of prostate (principal)
CPT/HCPCS: 36415; 84153